=== PATIENT | male | born 1985 | race Caucasian/White ===

== ENCOUNTER 2020-07-13 17:16 | Emergency (ER) | payer OTHER ==
[~2020-07-13] VITALS: Ht 175.3 cm; Wt 90.7 kg
--- NOTE | 2020-07-13 17:37 | ED General ---
General Chief Complaint: Laceration Stated Complaint: HEAD LAC History of Present Illness Date Seen by Provider: Jul 13, 2020 Time Seen by Provider: 17:36 Initial Comments Patient presenting to the emergency department for evaluation of head trauma. Maryjo farris picked him up for an outstanding warrant and while he was in the back of the police car he took his forehead and started hitting it up against the grades that separate the front from the back of the vehicle and he was rubbing it [id number] and caused a fairly large abrasion with skin tissue defect. He appears to be intoxicated and has a very difficult time answering questions directly as he wants to be sarcastic and inappropriate. He was able to answer orientation questions for me and said that he is refusing all medical treatment. I tried to convince him to let me evaluate his head wound and get a CT scan however he refused. He is alert and oriented x3. He told me that the head wound was caused by "sucking ambrocio" and every question related to the injury he answered inappropriately with sexual acts. I asked him again if I could evaluate his wounds and address them and he said now that he is refusing all medical treatment and accept the risks of and disability by not having a full proper medical evaluation. I stepped out and spoke to the vice squad police officer that has him under custody and said that he is a well-known drug user and has an outstanding warrant and is willing to take him into custody. I told them if he wants medical treatment or evaluation later on or if they feel that he needs more emergent evaluation or if they wanted him to get a mental health evaluation that they could bring him back at any time. Allergies and Home Medications Allergies Coded Allergies: ibuprofen (Verified Allergy, Unknown, 07/13/20) Patient Home Medication List Home Medication List Reviewed: Yes Review of Systems Review of Systems Constitutional: no symptoms reported, other (Patient would not answer review of systems questions as he was not relate every question to "sucking ambrocio") Physical Exam Vital Signs Capillary Refill : Height, Weight, BMI Height: '" Weight: lbs. oz. kg; BMI Method: General Appearance: No Apparent Distress, Anxious HEENT: Other (Patent airway) Neck: Supple Respiratory: No Respiratory Distress Cardiovascular: Regular Rate, Rhythm Gastrointestinal: Non Tender, Soft Extremity: Normal Capillary Refill Neurologic/Psychiatric: Alert, Oriented x3 Skin: Warm/Dry, Other (Large frontal midline scalp tissue defect) Progress/Results/Core Measures Suspected Sepsis SIRS Temperature: Pulse: Respiratory Rate: Blood Pressure / Mean: Results/Orders Vital Signs/I&O Capillary Refill : Progress Note : Progress Note Patient refused all medical treatment and evaluation and he is alert and oriented x3 and walked out under his own power with 3 police officers escorting him. Departure Impression Primary Impression: Scalp abrasion Qualified Codes: S00.01XA - Abrasion of scalp, initial encounter Additional Impression: Scalp contusion Qualified Codes: S00.03XA - Contusion of scalp, initial encounter Disposition: HOME, SELF-CARE Condition: Stable Departure-Patient Inst. Patient Instructions: Skin Abrasions (DC) KOMAL PATTERSON DO Jul 13, 2020 17:37
[2020-07-13 17:40] VITALS: BP 150/76
== END 2020-07-13 17:40 | disposition home or self-care (01) ==
LOC: ER FS 17:20
DX: S00.03XA Contusion of scalp, initial encounter (principal); F41.9 Anxiety disorder, unspecified; Z88.6 Allergy status to analgesic agent; W22.8XXA Striking against or struck by other objects, initial encounter

== ENCOUNTER 2021-01-25 03:24 | Emergency (ER) | payer OTHER ==
--- NOTE | 2021-01-25 03:34 | ED Head Injury ---
General Chief Complaint: Laceration Stated Complaint: FOREHEAD LAC Source: patient Exam Limitations: no limitations History of Present Illness Date Seen by Provider: Jan 25, 2021 Time Seen by Provider: 03:25 Initial Comments 35-year-old male presents to the emergency department tonight with a chief complaint of laceration to the forehead. Patient presents from the [facility] and apparently had head butted a door. No loss of consciousness reported. No other complaints of injury. No neck pain. All other review of systems reviewed and negative except as stated above. Occurred: just prior to arrival Severity: mild Location: frontal Method of Injury: direct blow Loss of Consciousness: no loss of consciousness Associated Systoms: Denies Symptoms Allergies and Home Medications Allergies Coded Allergies: No Known Allergies (Verified Allergy, Unknown, 01/25/21) Patient Home Medication List Home Medication List Reviewed: Yes Review of Systems Review of Systems Constitutional: see HPI Eyes: No Symptoms Reported Ears, Nose, Mouth, Throat: no symptoms reported Respiratory: no symptoms reported Cardiovascular: no symptoms reported Gastrointestinal: no symptoms reported Musculoskeletal: no symptoms reported Skin: other (Laceration) All Other Systems Reviewed Negative Unless Noted: Yes Past Llaypmx-Aarche-Weyhvq Hx Seasonal Allergies Seasonal Allergies: No Past Medical History Surgeries: Yes Orthopedic Respiratory: Yes Asthma Cardiac: No Neurological: No Genitourinary: No Gastrointestinal: No Musculoskeletal: No Endocrine: No HEENT: No Cancer: No Psychosocial: No Integumentary: No Physical Exam Vital Signs Vital Signs - First Documented 01/25/21 03:27 Pulse 63 Resp 16 B/P (MAP) 146/96 (113) Pulse Ox 100 O2 Delivery Room Air Capillary Refill : Height, Weight, BMI Height: '" Weight: lbs. oz. kg; 29.00 BMI Method: General Appearance: WD/WN, no apparent distress HEENT: PERRL/EOMI, other (Contusion to the center of the forehead with central laceration. Contusion is approximately 4 x 4 cm) Neck: non-tender, full range of motion Cardiovascular: regular rate, rhythm Respiratory: no respiratory distress, no accessory muscle use Extremities: normal range of motion Psychiatric: alert, oriented x 3 Crainal Nerves: normal hearing, normal speech, PERRL Coordination/Gait: normal gait Motor/Sensory: no motor deficit, no sensory deficit Skin: normal color, warm/dry, other (Laceration vertical in origin at the center of the forehead, approximately 4 cm in length. Irregular margins. Superficial. Minimal active bleeding noted.) Procedures/Interventions Wound Location: Face Other Wound Location frontal scalp/ forehead Wound Length (cm): 4 Wound's Depth, Shape: superficial, irregular Wound Explored: clean Irrigated w/ Saline (ccs): 100 Betadine Prep?: No Anesthesia: 1% Lidocaine Volume Anesthetic (ccs): 4 Suture: Prolene Suture Size: 5-0 Number of Sutures: 6 Layer Closure?: 1 Number Deep Layer Sutures: 0 Sterile Dressing Applied?: Yes Progress/Results/Core Measures Results/Orders My Orders Vital Signs/I&O Departure Impression Primary Impression: Forehead laceration Qualified Codes: S01.81XA - Laceration without foreign body of other part of head, initial encounter Disposition: HOME, SELF-CARE Condition: Stable Departure-Patient Inst. Decision time for Depature: 03:57 [address]errals: [facility] [place] NO,LOCAL PHYSICIAN (PCP) Primary Care Physician Patient Instructions: Laceration Repair With Stitches (DC) Add. Discharge Instructions: Keep the wound clean dry and covered for the first 48 hours. Wash normally with soap and water. You can apply Neosporin once or twice daily for 2-3 days The stitches will need to be removed in 5 to 7 days. You can come back to the emergency room for removal or follow-up with your [facility] care physician. Come back sooner if you have any swelling, redness, fever, drainage from the wound or any other emergent concerning symptoms. MISTY PAYNE MD Jan 25, 2021 03:34
[2021-01-25] MEDS ORDERED: TETANUS,DIPTH,PERTUSS P/F (BOOSTRIX) 0.5 ML VIAL IM ONE (03:45)
[2021-01-25] MEDS ORDERED: LIDOCAINE 1% INJ 20 ML 20 ML VIAL INJ ONE (03:45)
[2021-01-25 04:03] VITALS: BP 146/96
== END 2021-01-25 04:04 | disposition home or self-care (01) ==
LOC: EDUNIT# 03:24 → ER FS 03:25
DX: S01.81XA Laceration without foreign body of other part of head, initial encounter (principal); J45.909 Unspecified asthma, uncomplicated; Z23 Encounter for immunization; W22.8XXA Striking against or struck by other objects, initial encounter
CPT/HCPCS: 12011; 90715

== ENCOUNTER 2021-03-11 15:19 | Emergency (ER) | payer OTHER ==
[~2021-03-11] VITALS: Ht 185.5 cm; Wt 84.9 kg
--- NOTE | 2021-03-11 15:22 | ED Integumentary General ---
General Chief Complaint: Laceration Stated Complaint: HEAD LAC History of Present Illness Date Seen by Provider: Mar 11, 2021 Time Seen by Provider: 15:22 Initial Comments 35-year-old male brought in with forehead laceration. Patient is incarcerated, gets angry and bangs his head on the door. Patient has done this multiple times. He is continuously split open and approximate 3 cm laceration on his anterior forehead. When asked why he does this, he states that "he has anger issues" he does not seem to be remorseful. He is up-to-date on his tetanus. No other significant complaints Allergies and Home Medications Allergies Coded Allergies: No Known Allergies (Verified Allergy, Unknown, 01/25/21) Patient Home Medication List Home Medication List Reviewed: Yes Review of Systems Review of Systems Constitutional: see HPI EENTM: no symptoms reported Respiratory: no symptoms reported Cardiovascular: no symptoms reported Gastrointestinal: no symptoms reported Genitourinary: no symptoms reported Musculoskeletal: no symptoms reported Skin: see HPI Psychiatric/Neurological: See HPI Endocrine: No Symptoms Reported Past Wjlsjsb-Mbsrzb-Mzwcbd Hx Seasonal Allergies Seasonal Allergies: No Past Medical History Surgeries: Yes Orthopedic Respiratory: Yes Asthma Cardiac: No Neurological: No Genitourinary: No Gastrointestinal: No Musculoskeletal: No Endocrine: No HEENT: No Cancer: No Psychosocial: No Integumentary: No Physical Exam Vital Signs Capillary Refill : General Appearance: no apparent distress HEENT: pharynx normal, other (Small scalp contusion with approximately a 3 cm laceration) Respiratory: lungs clear, normal breath sounds, no respiratory distress Gastrointestinal: non tender, soft Extremities: normal range of motion, non-tender Neurologic/Psychiatric: alert Skin Problem Location: scalp (Forehead) Skin Problem Character: linear (3 cm linear laceration) Lymphatic: no adenopathy Procedures/Interventions Wound Location: Scalp (Forehead) Wound Length (cm): 3 Wound's Depth, Shape: superficial, linear Wound Explored: clean Suture Size: 5-0 Other Closure Supply: Steri Strip 06/27", Mastisol, Wound Adhesive Patient tolerated well with good approximation and no immediate complication Departure Impression Primary Impression: Forehead laceration Qualified Codes: S01.81XA - Laceration without foreign body of other part of head, initial encounter Disposition: 01 HOME, SELF-CARE Condition: Stable Departure-Patient Inst. Referrals: NO,LOCAL PHYSICIAN (PCP/Family) Primary Care Physician Patient Instructions: Laceration Repair With Glue (DC) JAYY MARTINO DO Mar 11, 2021 15:22
[2021-03-11 15:25] VITALS: BP 152/85
== END 2021-03-11 15:50 | disposition home or self-care (01) ==
LOC: EDUNIT# 15:19 → ER FS 15:20
DX: S01.81XA Laceration without foreign body of other part of head, initial encounter (principal); J45.909 Unspecified asthma, uncomplicated; W22.8XXA Striking against or struck by other objects, initial encounter